=== PATIENT | male | born 1955 | race African-American/Black ===

== ENCOUNTER 2019-09-29 13:11 | Inpatient (IN) | payer MEDICAID, OTHER ==
[~2019-09-29] VITALS: Ht 182.9 cm; Wt 101.0 kg
[2019-09-29] MEDS ORDERED: SODIUM CHLORIDE 0.9% 1,000 ML IV ONE ×2 (13:32)
[2019-09-29 14:38] LABS: Basophils # (auto) 0 10 ^3/uL (0-0.2); Basophils % (auto) 0.4 % (0.0-2.0); Eosinophils # (auto) 0 10 ^3/uL (0-0.8); Eosinophils % (auto) 0.4 % (0.0-7.0); Hematocrit 34.4 % (41.0-53.0); Hemoglobin 11.1 g/dL (13.5-17.5); Lymphocytes # (auto) 1.6 10 ^3/uL (0.4-5.4); Lymphocytes % (auto) 17.3 % (10.0-50.0); Mean Corpuscular Hemoglobin 29.4 pg (28.0-32.0); Mean Corpuscular Hgb Conc. 32.2 g/dL (32.0-36.0); Mean Corpuscular Volume 91.3 fL (80.0-100.0); Monocytes # (auto) 0.9 10 ^3/uL (0-1.3); Monocytes % (auto) 9.5 % (0.0-12.0); Neutrophils # (auto) 6.8 10 ^3/uL (1.6-8.6); Neutrophils % (auto) 72.4 % (37.0-80.0); Platelet Count (auto) 131 10^3/uL (140-450); Red Blood Cells 3.77 10^6/uL (4.5-5.90); Red Cell Distribution Width 13.4 % (11.8-14.3); White Blood Cell 9.4 10^3/uL (4.4-10.8)
[2019-09-29 14:53] LABS: Albumin 2.7 g/dL (3.4-5.0); Anion Gap 5 (5-15); Blood Urea Nitrogen 22 mg/dL (7-18); Calcium 8.5 mg/dL (8.5-10.1); Carbon Dioxide 22 mmol/L (21-32); Chloride 108 mmol/L (98-107); Glucose 128 mg/dL (74-106); Potassium 3.6 mmol/L (3.5-5.1); Sodium 135 mmol/L (136-145)
[2019-09-29 14:59] LABS: Alanine Aminotransferase 15 U/L (16-61); Alkaline Phosphatase 144 U/L (45-117); Aspartate Aminotransferase 23 U/L (15-37); BUN/Creatinine Ratio 22.4; Bilirubin, Total 0.3 mg/dL (0.2-1.0); GFR African American 99 mL/min; GFR Non-African American 82 mL/min; INR 1.22 (0.9-1.15); Total Protein 8.2 g/dL (6.4-8.2)
[2019-09-29 15:40] LABS: Urine WBC None Seen /hpf (0 - 3)
[2019-09-29 15:56] LABS: Urine Bacteria NONE SEEN /hpf (None Seen); Urine Blood Negative /uL (Negative); Urine Specific Gravity 1.016 (1.001-1.035)
[2019-09-29] MEDS ORDERED: HYDROcodone-ACET 10/325MG TAB PO ONE (16:00)
[2019-09-29] MEDS ORDERED: PIPERACILLIN-TAZOB 3.375GM 100 ML IV ONE (17:15)
[2019-09-29] MEDS ORDERED: traMADol HCL 50 MG TAB PO PRN (17:45)
[2019-09-29] MEDS ORDERED: MORPHINE SULF INJ 2 MG/ML SYRINGE 1ML IV PRN (17:45)
[2019-09-29] MEDS ORDERED: levoFLOXacin 500MG 100 ML IV ONE (17:45)
[2019-09-29] MEDS ORDERED: PROMETHAZINE HCL 25 MG/ML 1ML IV PRN (17:45)
[2019-09-29] MEDS ORDERED: ACETAMINOPHEN 500 MG TAB PO PRN (17:45)
[2019-09-29] MEDS ORDERED: NITROGLYCERIN 0.4 MG SL TAB SL PRN (17:45)
[2019-09-29] MEDS ORDERED: LACTULOSE 20Gm/30ML SOLN PO PRN (17:45)
[2019-09-29] MEDS ORDERED: DEXTROSE (50%) 50ML SYRG IV PRN (17:45)
[2019-09-29] MEDS: SODIUM CHLORIDE 0.9% 1,000 ML IV SCH (17:51)
[2019-09-29] MEDS ORDERED: LISI10TA6 PO (18:28)
[2019-09-29] MEDS ORDERED: OMEP20TA PO (18:28)
[2019-09-29] MEDS ORDERED: GABA100C9 PO (18:28)
[2019-09-29] MEDS ORDERED: QUET100T46 PO (18:28)
[2019-09-29] MEDS ORDERED: CETI-120 PO (18:28)
[2019-09-29] MEDS ORDERED: CYCL1TAB18 PO (18:28)
[2019-09-29 21:17] VITALS: BP 132/86
[2019-09-29] MEDS: ACCU-CHEK COMFORT CURVE STRIP VI SCH (22:00)
[2019-09-29] MEDS: InsuLIN REG 1unit/0.01ml Soln (100units/ml) SC SCH (22:00)
[2019-09-29] MEDS ORDERED: NAP500T PO (23:10)
[2019-09-29] MEDS ORDERED: QUET50TA PO (23:10)
[2019-09-29] MEDS ORDERED: TRAM50TA2 PO (23:10)
[2019-09-29] MEDS ORDERED: HYDR-4833 PO (23:10)
[2019-09-30] MEDS: MORPHINE SULF INJ 2 MG/ML SYRINGE 1ML IV PRN ×4 (00:06→21:07)
[2019-09-30] MEDS: TEMAZEPAM 15 MG CAP PO PRN ×2 (00:07→21:47)
[2019-09-30] MEDS: CLINDAMYCIN 600MG IV 50 ML IV SCH ×4 (00:07→21:48)
[2019-09-30] MEDS: FAMOTIDINE 20 MG TAB PO SCH ×3 (00:07→21:47)
[2019-09-30] MEDS ORDERED: QUEtiapine FUMARATE 100 MG TAB PO ONE ×2 (02:00)
[2019-09-30] MEDS: SODIUM CHLORIDE 0.9% 1,000 ML IV SCH ×2 (04:03→13:55)
[2019-09-30 05:00] VITALS: BP 141/85
[2019-09-30] MEDS: InsuLIN REG 1unit/0.01ml Soln (100units/ml) SC SCH ×4 (07:00→22:01)
[2019-09-30] MEDS: ACCU-CHEK COMFORT CURVE STRIP VI SCH ×4 (07:00→22:27)
[2019-09-30 08:00] VITALS: BP 128/90
[2019-09-30 09:00] VITALS: BP 128/90
[2019-09-30] MEDS: levoFLOXacin 500MG 100 ML IV SCH (10:17)
[2019-09-30] MEDS: ENOXAPARIN SOD 40 MG/0.4 ML SYRINGE SC SCH (10:17)
[2019-09-30] MEDS: QUEtiapine FUMARATE 100 MG TAB PO SCH ×3 (10:18→21:48)
[2019-09-30 13:00] VITALS: BP 133/85
[2019-09-30] MEDS ORDERED: HYDROcodone-ACET 10/325MG TAB PO PRN (15:30)
[2019-09-30] MEDS: HYDROcodone-ACET 10/325MG TAB PO PRN (15:42)
[2019-09-30 16:52] VITALS: BP 143/94
[2019-09-30 21:56] VITALS: BP 130/83
[2019-09-30] MEDS: NYSTATIN TOPICAL POWDER 15GM TOP SCH (22:30)
[2019-10-01] MEDS: HYDROcodone-ACET 10/325MG TAB PO PRN ×2 (04:07→10:18)
[2019-10-01 05:00] VITALS: BP 128/87
[2019-10-01] MEDS: CLINDAMYCIN 600MG IV 50 ML IV SCH ×3 (05:57→21:54)
[2019-10-01] MEDS: ACCU-CHEK COMFORT CURVE STRIP VI SCH ×4 (05:58→22:55)
[2019-10-01] MEDS: InsuLIN REG 1unit/0.01ml Soln (100units/ml) SC SCH ×4 (06:15→22:00)
[2019-10-01] MEDS: MORPHINE SULF INJ 2 MG/ML SYRINGE 1ML IV PRN ×2 (06:38→12:31)
[2019-10-01 08:00] VITALS: BP 146/81
[2019-10-01 09:00] VITALS: BP 146/81
[2019-10-01] MEDS: ENOXAPARIN SOD 40 MG/0.4 ML SYRINGE SC SCH (10:17)
[2019-10-01] MEDS: FAMOTIDINE 20 MG TAB PO SCH ×2 (10:17→21:48)
[2019-10-01] MEDS: NYSTATIN TOPICAL POWDER 15GM TOP SCH ×2 (10:17→22:53)
[2019-10-01] MEDS: QUEtiapine FUMARATE 100 MG TAB PO SCH ×3 (10:17→21:49)
[2019-10-01] MEDS: levoFLOXacin 500MG 100 ML IV SCH (10:17)
[2019-10-01 13:19] VITALS: BP 124/81
[2019-10-01] MEDS ORDERED: CLOPIDOGREL BISULFATE 75 MG TAB PO ONE (15:00)
[2019-10-01] MEDS ORDERED: CILOSTAZOL 100 MG TAB PO ONE (15:00)
[2019-10-01] MEDS: OXYCODONE W/ ACETAMINOPHEN 5/325MG TABLET PO PRN (16:19)
[2019-10-01 17:00] VITALS: BP 139/88
[2019-10-01 21:44] VITALS: BP 123/96
[2019-10-01] MEDS: TEMAZEPAM 15 MG CAP PO PRN (21:48)
[2019-10-01] MEDS: CILOSTAZOL 100 MG TAB PO SCH (22:52)
[2019-10-02] MEDS: OXYCODONE W/ ACETAMINOPHEN 5/325MG TABLET PO PRN ×2 (02:29→10:24)
[2019-10-02 04:45] VITALS: BP 101/62
[2019-10-02] MEDS: CLINDAMYCIN 600MG IV 50 ML IV SCH ×3 (06:15→22:00)
[2019-10-02] MEDS: ACCU-CHEK COMFORT CURVE STRIP VI SCH ×4 (06:15→22:00)
[2019-10-02] MEDS: InsuLIN REG 1unit/0.01ml Soln (100units/ml) SC SCH ×4 (06:17→22:00)
[2019-10-02 09:21] VITALS: BP 111/61
[2019-10-02] MEDS: ENOXAPARIN SOD 40 MG/0.4 ML SYRINGE SC SCH (10:23)
[2019-10-02] MEDS: FAMOTIDINE 20 MG TAB PO SCH ×2 (10:24→22:30)
[2019-10-02] MEDS: QUEtiapine FUMARATE 100 MG TAB PO SCH ×3 (10:24→22:30)
[2019-10-02] MEDS: CLOPIDOGREL BISULFATE 75 MG TAB PO SCH (10:24)
[2019-10-02] MEDS: CILOSTAZOL 100 MG TAB PO SCH ×2 (10:24→22:28)
[2019-10-02] MEDS: NYSTATIN TOPICAL POWDER 15GM TOP SCH ×2 (10:24→22:00)
[2019-10-02] MEDS: levoFLOXacin 500MG 100 ML IV SCH (10:25)
[2019-10-02 13:57] VITALS: BP 133/78
[2019-10-02] MEDS: HYDROcodone-ACET 10/325MG TAB PO PRN ×2 (16:47→22:28)
[2019-10-02 17:00] VITALS: BP 130/72
[2019-10-02 21:46] VITALS: BP 127/88
[2019-10-02] MEDS: MUPIROCIN 2% OINT 15gm or 22gm EACHNOSTRI SCH (22:36)
[2019-10-03] MEDS: HYDROcodone-ACET 10/325MG TAB PO PRN ×4 (03:47→20:24)
[2019-10-03 05:06] VITALS: BP 123/72
[2019-10-03] MEDS: ACCU-CHEK COMFORT CURVE STRIP VI SCH ×4 (06:28→21:47)
[2019-10-03] MEDS: CLINDAMYCIN 600MG IV 50 ML IV SCH ×3 (06:28→21:46)
[2019-10-03] MEDS: InsuLIN REG 1unit/0.01ml Soln (100units/ml) SC SCH ×4 (06:53→22:23)
[2019-10-03 08:00] VITALS: BP 113/80
[2019-10-03] MEDS: FAMOTIDINE 20 MG TAB PO SCH ×2 (08:48→21:46)
[2019-10-03] MEDS: QUEtiapine FUMARATE 100 MG TAB PO SCH ×3 (08:48→21:47)
[2019-10-03] MEDS: CLOPIDOGREL BISULFATE 75 MG TAB PO SCH (08:49)
[2019-10-03] MEDS: levoFLOXacin 500MG 100 ML IV SCH (08:49)
[2019-10-03] MEDS: ENOXAPARIN SOD 40 MG/0.4 ML SYRINGE SC SCH (08:51)
[2019-10-03 09:07] VITALS: BP 113/80
[2019-10-03] MEDS: MUPIROCIN 2% OINT 15gm or 22gm EACHNOSTRI SCH ×2 (11:30→21:48)
[2019-10-03] MEDS: CILOSTAZOL 100 MG TAB PO SCH ×2 (11:31→21:47)
[2019-10-03] MEDS: NYSTATIN TOPICAL POWDER 15GM TOP SCH ×2 (11:31→21:48)
[2019-10-03] MEDS ORDERED: LIDOCAINE 2%HCL (LOCAL ANESTH.) INJ 20ML MDV ONE (12:26)
[2019-10-03] MEDS ORDERED: IODIXANOL 320MG/ML 100ML BTL IV ONE (12:26)
[2019-10-03] MEDS ORDERED: MIDAZOLAM HCL 1MG/1ML-2 ML VIAL ONE (12:31)
[2019-10-03] MEDS ORDERED: ANGIOMAX 250 MG VIAL IV ONE (12:31)
[2019-10-03] MEDS ORDERED: fentaNYL CITRATE 100 MCG/2 ML VL ONE (12:31)
[2019-10-03] MEDS ORDERED: SODIUM CHL 0.9% 50 ML ONE (12:31)
[2019-10-03 12:36] VITALS: BP 115/76
[2019-10-03] MEDS ORDERED: IOHEXOL 350 MG/ML 100ML IJ ONE (14:40)
[2019-10-03] MEDS ORDERED: diphenhdrAMINE HCL 50 MG/1 ML VL ONE (14:48)
[2019-10-03] MEDS ORDERED: HYDROmorphone HCL 2 MG/ML VL ONE (14:59)
[2019-10-03] MEDS ORDERED: CLOPIDOGREL 300 MG TAB ONE (15:11)
[2019-10-03 17:03] VITALS: BP 122/80
[2019-10-03 22:00] VITALS: BP 128/75
[2019-10-04] MEDS: HYDROcodone-ACET 10/325MG TAB PO PRN ×4 (01:21→19:25)
[2019-10-04 04:56] VITALS: BP 107/67
[2019-10-04] MEDS: CLINDAMYCIN 600MG IV 50 ML IV SCH ×2 (06:22→14:00)
[2019-10-04] MEDS: ACCU-CHEK COMFORT CURVE STRIP VI SCH ×3 (06:27→17:59)
[2019-10-04] MEDS: InsuLIN REG 1unit/0.01ml Soln (100units/ml) SC SCH ×3 (06:32→18:00)
[2019-10-04 06:57] LABS: BUN/Creatinine Ratio 8.4; Calcium 8.6 mg/dL (8.5-10.1); Potassium 4.2 mmol/L (3.5-5.1)
[2019-10-04 09:00] VITALS: BP 100/55
[2019-10-04] MEDS: levoFLOXacin 500MG 100 ML IV SCH (09:43)
[2019-10-04] MEDS: FAMOTIDINE 20 MG TAB PO SCH (09:43)
[2019-10-04] MEDS: CLOPIDOGREL BISULFATE 75 MG TAB PO SCH (09:43)
[2019-10-04] MEDS: CILOSTAZOL 100 MG TAB PO SCH (09:43)
[2019-10-04] MEDS: MUPIROCIN 2% OINT 15gm or 22gm EACHNOSTRI SCH (09:43)
[2019-10-04] MEDS: QUEtiapine FUMARATE 100 MG TAB PO SCH (09:44)
[2019-10-04] MEDS: NYSTATIN TOPICAL POWDER 15GM TOP SCH (09:44)
[2019-10-04] MEDS ORDERED: CILO100T PO (11:01)
[2019-10-04] MEDS ORDERED: CLOP75TA41 PO (11:02)
[2019-10-04 12:43] VITALS: BP 120/72
== END 2019-10-04 19:58 | disposition home health service (06) | DRG 181 ==
LOC: ER 13:11 → TELE 13:12 → TELE-WESTW 21:17
PROVIDERS: ADMIT Internal Medicine; ATTEND Internal Medicine
PROC: B41FYZZ Fluoroscopy of Right Lower Extremity Arteries using Other Contrast (ICD-10-PCS; principal; 2019-10-04)
PROC: 047Q3ZZ Dilation of Left Anterior Tibial Artery, Percutaneous Approach (ICD-10-PCS; 2019-10-04)
PROC: B41GYZZ Fluoroscopy of Left Lower Extremity Arteries using Other Contrast (ICD-10-PCS; 2019-10-04)
PROC: 047S3ZZ Dilation of Left Posterior Tibial Artery, Percutaneous Approach (ICD-10-PCS; 2019-10-04)
DX: E11.51 Type 2 diabetes mellitus with diabetic peripheral angiopathy without gangrene (principal); E43 Unspecified severe protein-calorie malnutrition; E11.40 Type 2 diabetes mellitus with diabetic neuropathy, unspecified; E72.51 Non-ketotic hyperglycinemia; E11.621 Type 2 diabetes mellitus with foot ulcer; F11.20 Opioid dependence, uncomplicated; L97.919 Non-pressure chronic ulcer of unspecified part of right lower leg with unspecified severity; L97.421 Non-pressure chronic ulcer of left heel and midfoot limited to breakdown of skin; E11.628 Type 2 diabetes mellitus with other skin complications; L03.115 Cellulitis of right lower limb; I10 Essential (primary) hypertension; A49.02 Methicillin resistant Staphylococcus aureus infection, unspecified site; I73.9 Peripheral vascular disease, unspecified; G89.29 Other chronic pain; L03.116 Cellulitis of left lower limb; E11.65 Type 2 diabetes mellitus with hyperglycemia; Z85.05 Personal history of malignant neoplasm of liver; Z22.322 Carrier or suspected carrier of Methicillin resistant Staphylococcus aureus; Z88.6 Allergy status to analgesic agent; Z80.0 Family history of malignant neoplasm of digestive organs; Z79.899 Other long term (current) drug therapy; Z83.3 Family history of diabetes mellitus; Z68.30 Body mass index [BMI] 30.0-30.9, adult
CPT/HCPCS: 36415; 71045; 73700; 80048; 80053; 81001; 82962; 83036; 84484; 85025; 85610; 85652; 85730; 87081; 93926; 96361; 96365; 96368; 99152; 99153; 99291; C1769; G0378; J1815; J1956; J2250; J2543; J3490; Q9967